=== PATIENT | male | born 2000 | race Two or more races ===

== ENCOUNTER 2024-09-10 14:26 | Inpatient (IN) | payer OTHER, SELFPAY ==
[2024-09-10] VITALS (16 sets, daily range): BP systolic 99–159; BP diastolic 69–92; BMI 27.3
[2024-09-10] MEDS: TORADOL 30 MG IV (06:00)
[2024-09-10] MEDS: ZOFRAN 4 MG IV ×3 (06:00→16:53)
[2024-09-10 06:19] LABS: Hematocrit 48.5 % (39.0-52.0); Mean Corp Hgb Conc. 35.1 g/dL (33.0-37.0); Mean Corpuscular Hgb 29.3 pg (27.0-31.0); Mean Corpuscular Volume 83.6 fL (80.0-94.0); Mean Platelet Volume 10.2 fL (7.4-10.4); Platelet Count 360 10^3/uL (130-400); Red Cell Dist. Width 12.8 % (11.5-14.5)
[2024-09-10 06:27] LABS: Lactic Acid 2.7 mmol/L (0.7-2.0)
[2024-09-10 06:35] LABS: ALT (SGPT) 39 U/L (0-50); AST (SGOT) 27 U/L (17-59); Albumin 5.2 g/dl (3.5-5.0); Alkaline Phosphatase 79 U/L (38-126); Blood Urea Nitrogen 17 mg/dl (9-20); Calcium 10.1 mg/dl (8.4-10.2); Carbon Dioxide 19 mmol/L (22-30); Chloride 112 mmol/L (98-107); Glucose 191 mg/dl (70-99); Potassium 4.7 mmol/L (3.5-5.1); Sodium 145 mmol/L (135-145); Total Bilirubin 0.9 mg/dl (0.2-1.3); eGFR > 60.00
[2024-09-10] MEDS: NSS 1000 IV ×2 (06:37→14:19)
[2024-09-10 06:49] LABS: Lipase 76 U/L (23-300)
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
[2024-09-10] MEDS: OMNIPAQUE 50 ML PO (07:21)
[2024-09-10 08:08] LABS: % Basophils 0.3 % (0-2); % Immature Granulocytes 0.4 % (0-0.5); % Monocytes 3.4 % (1.7-9.3); % Neutrophils 90.9 % (42.2-75.2); Absolute Basophils 0.1 10^3/uL (0-0.2); Absolute Immature Granulocytes 0.1 10^3/uL (0-0.05); Absolute Monocytes 0.7 10^3/uL (0.1-0.6); Nucleated Red Blood Cells % 0 % (-)
[2024-09-10] MEDS: MORPHINE SULFATE 4 MG IV (10:11)
[2024-09-10 10:26] LABS: Lactic Acid 2.2 mmol/L (0.7-2.0)
[2024-09-10] MEDS: TORADOL 15 MG IV ×2 (11:48→22:59)
--- NOTE | 2024-09-10 14:13 | EDRN ---
Bladder scan showed 71 mls in bladder scan. patient has continuous stress incontinence at baseline. GI [employer]ER [employer] at bedside. 14F catheters placed in RLQ stoma and rectum to decompress GI tract and help relieve pain. Patient tolerated. Skin care applied.
New sheets given. IVF 1LNSS started per GI [employer] verbal order. Awaiting surgery consult.
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
--- NOTE | 2024-09-10 14:31 | EDRN ---
colorectal surgery at bedside
[2024-09-10] MEDS: DILAUDID 0.5 MG IV ×4 (14:35→22:28)
[2024-09-10] MEDS: ZOSYN 50 IV ×2 (15:06→22:28)
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
--- NOTE | 2024-09-10 15:24 | EDRN ---
RN unsuccessful with placing mendez catheter with 12 fr mendez. RN met with a lot of resistance upon insertion and patient could not tolerate pain. MD Wilder [facility] medicine aware.
--- NOTE | 2024-09-10 15:26 | EDRN ---
1500- colorectal surgery removed rectal tubing
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
[2024-09-10] MEDS: FLEET PHOSPHATE ENEMA-ADULT 135 ML RECTAL (16:53)
[2024-09-10] MEDS: NSS 500 IV (17:22)
--- NOTE | 2024-09-10 18:40 | PTCARENOTE ---
Pt received as admit from ED. Primary language is Cymraes/Greek. AAOx3. NSR on tele. SpO2 93% on room air. VSS. Pt with appendicostomy in the RLQ of abdomen with red rubber Mujica placed by GI connected to drainage bag. Dressing saturated d/t
leaking around catheter. Dressing changed. Trach gauze, abd and Medipore applied. RUQ and RLQ tender. LLQ with hypoactive bowel sounds. Pt received fleet enema x1 via rectum without much relief. Very small BM noted after administering. R hip/thigh
and sacrum with old scarring from prior reconstructive surgical procedures. Skin intact otherwise. IVF infusing through R hand PIV. Pt abdominal pain managed with PRN IV Dilaudid (see MAR). Assessment documented. Pt in bed call south in reach.
[2024-09-10] MEDS: NSS IV (19:00)
[2024-09-10] MEDS: BENTYL 10 MG PO (22:59)
--- NOTE | 2024-09-10 23:26 | PTCARENOTE ---
Patient experiencing 10/10 abdominal pain with severe cramping. Spoke to patient via pest locator. Pt initially refusing enema through appendicostomy due to the severe pain he experienced when attempted previously. ALEXIS Ann made aware and ordered
pre medication for pain prior to administering enema. See MAR. Pt is receptive. Dilaudid PRN changed to Q2H due to pain severity and frequency. ALEXIS Ann gave the OK to administer Bentyl for spasms with small sip of water. Pt denies any nausea or
vomiting. Pt AAOx3 primary language is Ukranian. NSR on the monitor. Pt on room air. SpO2 94%. RLQ appendicostomy site dressing intact with small amount of drainage. IVF cont. IV abx administered. Assessment and vitals as charted see worklist. Call
south within reach.
[2024-09-11] VITALS (11 sets, daily range): BP systolic 111–131; BP diastolic 64–80; BMI 26.9
[2024-09-11] MEDS: FLEET PHOSPHATE ENEMA-ADULT 135 ML RECTAL ×2 (00:05→07:51)
[2024-09-11] MEDS: GLYCERIN SUPPOSITORY ADULT 1 SUPP RECTAL (00:05)
[2024-09-11] MEDS: NSS IV ×2 (00:27→14:57)
[2024-09-11] MEDS: PEPCID 20 MG PO (01:02)
--- NOTE | 2024-09-11 01:08 | PTCARENOTE ---
Administered enema through appendicostomy as well as suppository rectally. There was some drainage around the stoma noted as well as after administration.
[2024-09-11] MEDS: NSS 1000 IV ×2 (02:03→09:36)
--- NOTE | 2024-09-11 02:48 | PTCARENOTE ---
Patient 85% SpO2 on room air while sleeping. Placed pt on 2L NC.
[2024-09-11] MEDS: ZOFRAN 4 MG IV (03:33)
[2024-09-11] MEDS: ZOSYN 50 IV ×4 (03:33→22:04)
[2024-09-11 04:32] LABS: % Basophils 0.3 % (0-2); % Eosinophils 0.3 % (0-6); % Immature Granulocytes 0.3 % (0-0.5); % Lymphocytes 7.3 % (20.5-51.1); % Monocytes 9.8 % (1.7-9.3); Absolute Lymphocytes 0.9 10^3/uL (1.2-3.4); Absolute Monocytes 1.2 10^3/uL (0.1-0.6); Absolute Neutrophils 9.8 10^3/uL (1.4-6.5); Hematocrit 45.1 % (39.0-52.0); Hemoglobin 14.8 g/dL (13.0-18.0); Mean Corp Hgb Conc. 32.8 g/dL (33.0-37.0); Mean Corpuscular Hgb 28.7 pg (27.0-31.0); Mean Corpuscular Volume 87.6 fL (80.0-94.0); Mean Platelet Volume 10.1 fL (7.4-10.4); Nucleated Red Blood Cells % 0 % (-); Platelet Count 277 10^3/uL (130-400); Red Blood Cell Count 5.15 10^6/uL (4.70-6.10); Red Cell Dist. Width 13.3 % (11.5-14.5)
--- NOTE | 2024-09-11 04:32 | PTCARENOTE ---
Patient had an episode of vomiting, brown emesis. IV Zofran administered. ALEXIS Ann made aware, new orders for IV Protonix see MAR.
[2024-09-11] MEDS: PROTONIX IV 40 MG IV (04:41)
[2024-09-11] MEDS: NSS (PRESERVATIVE FREE) 10 ML IV (04:41)
[2024-09-11 04:50] LABS: ALT (SGPT) 35 U/L (0-50); AST (SGOT) 20 U/L (17-59); Albumin 3.9 g/dl (3.5-5.0); Alkaline Phosphatase 60 U/L (38-126); Blood Urea Nitrogen 15 mg/dl (9-20); Calcium 8.7 mg/dl (8.4-10.2); Carbon Dioxide 23 mmol/L (22-30); Chloride 116 mmol/L (98-107); Estimated Creatinine Clearance 112 ml/min; Glucose 124 mg/dl (70-99); Potassium 3.9 mmol/L (3.5-5.1); Sodium 148 mmol/L (135-145); Total Bilirubin 1.4 mg/dl (0.2-1.3); Total Protein 6.3 g/dl (6.3-8.2); eGFR > 60.00
--- NOTE | 2024-09-11 04:52 | W.PN.UPDATE ---
Update Note
Progress Note Update
Patient c/o 01/01 abdominal pain. Dilaudid IV given as well as Toradol IV x1. Enema given yielded only small amount of liquid bm. One episode of vomiting noted. Pepcid/Protonix given for c/o reflux. Bladder scanned for 70 cc urine. May need urology
consult with calculi noted in bladder.
--- NOTE | 2024-09-11 06:32 | W.PN.HOSP.TC ---
Today's Communication/Plan
-
Gastrografin enema
Assessment / Plan
Assessment / Plan
IMPRESSION:
24-year-old male presenting with worsening constipation. Patient is septic at presentation in the ER.
PLAN:
#Sepsis
#Severe constipation
#Abdominal pain
Elevated WBC count 20, tachycardia�102, tachypnea�23 at presentation
SIRS positive
CT abdomen pelvis�severely dilated stool/fluid-filled colon/constipation/colonic ileus, no evidence of obstruction, 3.8 cm large bladder calculus with cystitis.
X-ray abdomen showed no evidence of free air under the diaphragm
Patient also has a history of stress urinary incontinence
Differentials�colitis due to severe colonic stool burden/translocation causing bacteremia or infection of the stoma site or UTI
MACE procedure (appendicostomy for antegrade enema)
No evidence of peritonitis
Continue IV fluids
NPO
Continue IV Zosyn
Blood culture X2-pending
U/A with urine culture�pending
Pain control with Dilaudid, Toradol as needed
Case discussed with [facility] pediatric surgeon
GI consulted
Colorectal consulted�no acute surgical intervention at this time
Fleet enemas via Mace and transanal with glycerin suppositories did not help much
Gastrografin enema today
#Acute drop in hemoglobin
17 >>14.8
No hematemesis, blood in the stool/from ostomy site, hematuria reported
Will check CBC and monitor for now
#Hypernatremia
145 >>148
Patient is dehydrated/vomiting episodes
Will monitor for now
#Lactic acidosis
Resolved
Lactate 2.7 >>2.2 >>0.9
#Bladder calculus
Patient has stress urinary incontinence
U/A with culture
Tried to place Mujica, but could not
Overnight bladder scan for 70 cc urine, no retention
Urology consulted
DVT prophylaxis-SCDs
Diet NPO
Full code
Anticipated Discharge: > 48 hours
Subjective/Interval History
-
Date of Service: September 11, 2024
Patient reports his abdominal pain has improved, want to have some water.
Overnight�glycerin suppositories were given, Fleet enema from the appendicostomy site.Patient had an episode of vomiting and passed small soft stool overnight.
Objective Data
-
Labs:
Laboratory Results
09/11/24
04:07
WBC 12.0 H
Hgb 14.8
Hct 45.1
Plt Count 277 D
Sodium 148 H
Potassium 3.9
Chloride 116 H
Carbon Dioxide 23
BUN 15
Creatinine 0.9
Glucose 124 H
Calcium 8.7
Total Bilirubin 1.4 H
AST 20
ALT 35
Alkaline Phosphatase 60
Vital Signs:
Vital Signs
Temp Pulse Resp BP Pulse Ox
98.0 F 72 18 122/70 93
09/11/24 03:20 09/11/24 04:00 09/11/24 04:00 09/11/24 04:00 09/11/24 05:54
I&O
09/09/24 09/10/24 09/11/24
06:59 06:59 06:59
Intake Total 1600 / 1600
Output Total 200 / 200
Balance 1400 / 1400
Review of Systems
-
All other systems: Reviewed and negative
Physical Exam
-
General: Well Developed and Well Nourished
HEENT: Normocephalic and Atraumatic
Respiratory: Clear to Auscultation
Cardiac: Regular Rhythm and S1/S2
GI: Tender (No gaurding), Distended, Ostomy (Appendicostomy site connected to bag with 100 cc output of feculent material.) and Other (Bowel sounds positive)
Skin: Warm and Dry
Neuro: Awake, Alert, Oriented and AO x 3
Psych: Calm
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
[2024-09-11 08:05] LABS: Lactic Acid 0.9 mmol/L (0.7-2.0)
[2024-09-11] MEDS: DILAUDID 0.5 MG IV (08:09)
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
--- NOTE | 2024-09-11 08:36 | PTCARENOTE ---
MACE dressing changed due to copious drainage; Noted drainage bag connected to tube in MACE drained 75ml of liquid brown stool; Fleet enema administered through MACE tube and clamped. Pt reported severe pain and began dry heaving shortly after -
Dilaudid administered for pain. Will continue to monitor and assess.
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
--- NOTE | 2024-09-11 14:47 | PTCARENOTE ---
Pt returned from OP Radiology following gastro-gaffin enema. Turned Pt to change pads and Pt had large mostly liquid BM with some small hard stools/pieces noted. Turned Pt back and forth a couple times with each time producing mod-large liquid
BM's. Followed up after 45min with Pt and turned back and forth to produce 2 more mod-large mostly liquid BM's. Pt reports feeling better, denied pain or nausea at the time. Will continue to monitor and assess.
--- NOTE | 2024-09-11 15:48 | CM ---
Met with patient at bedside; initial assessment completed with the assistance of Online Cnc Mechanic
Pharmacy verified: [facility] @ [address] [place] [address]
Patient lives with mother and brother; split level home 5 steps to enter; 6 steps between levels; railings on stairs; powder room lower level; full bath with shower stall upper level
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
[facility]
DME: MACE apparatus ([place] Antegrade Continence Enema) to manage Bowel issues
Hospital stay in 2021 @ [facility]; no SNF or Home Health services
Discharge plan to be determined; case management will monitor hospital course and support discharge needs/services accordingly when determined
[2024-09-11] MEDS: LR 1000 IV (16:43)
[2024-09-12] VITALS (7 sets, daily range): BP systolic 107–123; BP diastolic 65–82; BMI 26.9
--- NOTE | 2024-09-12 00:38 | PTCARENOTE ---
Patient appears much more comfortable compared to the night prior following the Gastrografin enema. Pt had one small liquid BM tonight. Pt denies any cramping or discomfort at this time. Pt continues to request water, utilized mica parts sprayer to explain
that he can have ice chips sparingly but has to remain NPO throughout the night until cleared. IVF cont. IV abx cont. Call south is within reach.
[2024-09-12] MEDS: LR 1000 IV ×2 (03:01→16:04)
[2024-09-12] MEDS: ZOSYN 50 IV ×4 (03:01→23:47)
[2024-09-12 04:36] LABS: % Basophils 0.4 % (0-2); % Eosinophils 1.5 % (0-6); % Immature Granulocytes 0.3 % (0-0.5); % Lymphocytes 17.3 % (20.5-51.1); % Monocytes 8.4 % (1.7-9.3); % Neutrophils 72.1 % (42.2-75.2); Absolute Eosinophils 0.1 10^3/uL (0-0.7); Absolute Lymphocytes 1.6 10^3/uL (1.2-3.4); Absolute Monocytes 0.8 10^3/uL (0.1-0.6); Absolute Neutrophils 6.8 10^3/uL (1.4-6.5); Hematocrit 41.4 % (39.0-52.0); Mean Corp Hgb Conc. 33.8 g/dL (33.0-37.0); Mean Corpuscular Hgb 28.5 pg (27.0-31.0); Mean Corpuscular Volume 84.3 fL (80.0-94.0); Mean Platelet Volume 10.2 fL (7.4-10.4); Nucleated Red Blood Cells % 0 % (-); Platelet Count 250 10^3/uL (130-400); Red Blood Cell Count 4.91 10^6/uL (4.70-6.10); Red Cell Dist. Width 12.9 % (11.5-14.5); White Blood Cell Count 9.5 10^3/uL (4.8-10.8)
[2024-09-12 05:01] LABS: ALT (SGPT) 24 U/L (0-50); AST (SGOT) 17 U/L (17-59); Albumin 3.5 g/dl (3.5-5.0); Alkaline Phosphatase 56 U/L (38-126); Blood Urea Nitrogen 12 mg/dl (9-20); Calcium 8.6 mg/dl (8.4-10.2); Carbon Dioxide 25 mmol/L (22-30); Chloride 107 mmol/L (98-107); Estimated Creatinine Clearance 112 ml/min; Glucose 79 mg/dl (70-99); Potassium 3.2 mmol/L (3.5-5.1); Sodium 140 mmol/L (135-145); Total Bilirubin 1.9 mg/dl (0.2-1.3); Total Protein 5.6 g/dl (6.3-8.2); eGFR > 60.00
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
[2024-09-12] MEDS: KCL 270 MEQ IV (08:51)
[2024-09-12] MEDS: FLEET PHOSPHATE ENEMA-ADULT 135 ML RECTAL (08:51)
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
--- NOTE | 2024-09-12 12:47 | W.PN.URO.CBU ---
Today's Communication / Plan
-
no gu intervention
Assessment / Plan
-
dwyer s bladder stone which is mnoit soursce of admission but needs evall and tx will have pt seeprimary urologistor care givers other rashid follow up with dr reid for cyso and lasr tx
Diagnosis
-
Date of Service: September 12, 2024
-
Patient Diagnosis:recent sepsis incidental bladder stone noted
Post Op Day:
Subjective
-
nurse notes feeling better
Objective
-
Vital Signs
Temp Pulse Resp BP Pulse Ox
97.7 F 67 17 123/71 93
09/12/24 07:35 09/12/24 08:00 09/12/24 08:00 09/12/24 08:00 09/12/24 00:18
Intake and Output
09/11/24 09/12/24 09/13/24
06:59 06:59 06:59
Intake Total 1600 / 1600 900 / 900 500 / 500
Output Total 200 / 200
Balance 1400 / 1400 900 / 900 500 / 500
Intake:
IV fluids (Total) 1500 / 1500 800 / 800 500 / 500
IV piggybacks 100 / 100 100 / 100
Output:
Emesis 200 / 200
Other:
Number of approximated SMALL 1
amounts of urine
Number of approximated LARGE 1
amounts of urine
How many times incontinent 2
MODERATE amount urine
How many times incontinent 1 1
SATURATED amount urine
Laboratory Results
09/12/24 04:10
09/12/24 04:10
Review of Systems
-
Abdomen/GI: No Symptoms
Physical Exam
-
General - well developed, well nourished, no acute distress
Chest - clear bilaterally
Abdomen - soft, non-tender, positive bowel sounds, no CVAT, no incisional pain or distention
Genitalia - normal
Rectal - normal
Skin - warm & dry with no rash
Neuro - AOx3, no motor deficits
Extremities - no clubbing, no cyanosis, no edema
Incision - clean, dry
Dressing - clean, dry, intact
Care Review
Data Reviewed
Discussed with: Nursing
CT Scan: Image Pers Reviewed
[2024-09-12] MEDS: KCL ELIXIR 40 MEQ PO (14:54)
[2024-09-13] MEDS: ZOSYN 50 IV ×2 (04:06→08:51)
[2024-09-13] MEDS: LR 1000 IV (04:47)
[2024-09-13 07:00] LABS: Hematocrit 44.1 % (39.0-52.0); Hemoglobin 15.4 g/dL (13.0-18.0); Mean Corp Hgb Conc. 34.9 g/dL (33.0-37.0); Mean Corpuscular Hgb 28.9 pg (27.0-31.0); Mean Corpuscular Volume 82.7 fL (80.0-94.0); Mean Platelet Volume 10.2 fL (7.4-10.4); Platelet Count 265 10^3/uL (130-400); Red Blood Cell Count 5.33 10^6/uL (4.70-6.10); Red Cell Dist. Width 12.6 % (11.5-14.5); White Blood Cell Count 6.7 10^3/uL (4.8-10.8)
[2024-09-13 07:37] LABS: Blood Urea Nitrogen 7 mg/dl (9-20); Calcium 8.9 mg/dl (8.4-10.2); Carbon Dioxide 28 mmol/L (22-30); Chloride 105 mmol/L (98-107); Estimated Creatinine Clearance 101 ml/min; Glucose 80 mg/dl (70-99); Magnesium 1.8 mg/dl (1.6-2.3); Potassium 3.5 mmol/L (3.5-5.1); Sodium 139 mmol/L (135-145); eGFR > 60.00
[2024-09-13 07:48] VITALS: BP 112/71
[2024-09-13] MEDS: FLEET PHOSPHATE ENEMA-ADULT RECTAL (09:20)
[2024-09-13] MEDS: LR IV (09:20)
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
--- NOTE | 2024-09-13 11:43 | W.PN.URO.CBU ---
Today's Communication / Plan
-
home with outpatient follow up
Assessment / Plan
-
dwyer s bladder stone which is mnoit soursce of admission but needs evall and tx will have pt seeprimary urologistor care givers other rashid follow up with dr erid for cyso and lasr tx
Diagnosis
-
Date of Service: September 13, 2024
-
Patient Diagnosis:
Post Op Day:
Patient Diagnosis:recent sepsis incidental bladder stone noted
Post Op Day:
Subjective
-
nurses note stable
Objective
-
Vital Signs
Temp Pulse Resp BP Pulse Ox
97.8 F 54 21 112/71 95
09/13/24 07:48 09/13/24 07:48 09/13/24 07:48 09/13/24 07:48 09/13/24 07:48
Intake and Output
09/12/24 09/13/24 09/14/24
06:59 06:59 06:59
Intake Total 900 / 900 500 / 500
Balance 900 / 900 500 / 500
Intake:
IV fluids (Total) 800 / 800 500 / 500
IV piggybacks 100 / 100
Other:
Number of approximated MODERATE 2
amounts of urine
How many times incontinent 2
MODERATE amount urine
How many times incontinent 1
SATURATED amount urine
Number of unmeasured liquid
stools
Rectum 3
Laboratory Results
09/13/24 06:32
09/13/24 06:32
Review of Systems
-
: No Symptoms
Physical Exam
-
General - well developed, well nourished, no acute distress
Chest - clear bilaterally
Abdomen - soft, non-tender, positive bowel sounds, no CVAT, no incisional pain or distention
Genitalia - normal
Rectal - normal
Skin - warm & dry with no rash
Neuro - AOx3, no motor deficits
Extremities - no clubbing, no cyanosis, no edema
Incision - clean, dry
Dressing - clean, dry, intact
Care Review
Data Reviewed
Discussed with: Hospitalist
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
[2024-09-13 13:18] VITALS: BP 118/74
== END 2024-09-13 13:27 | disposition home or self-care (01) | DRG 872 ==
LOC: 3 WEST ACU 14:26
PROVIDERS: Emergency Medicine; Student in an Organized Health Care Education/Training Program; ADMITTING PHYSICIAN Internal Medicine; CONSULT PHYSICIAN Internal Medicine Gastroenterology; CONSULT PHYSICIAN Specialist; CONSULT PHYSICIAN Surgery; EMERGENCY PHYSICIAN Emergency Medicine; FAMILY PHYSICIAN Family Medicine
DX: A41.9 Sepsis, unspecified organism (principal); E87.20 Acidosis, unspecified; E87.1 Hypo-osmolality and hyponatremia; R71.0 Precipitous drop in hematocrit; K59.09 Other constipation; N39.3 Stress incontinence (female) (male); N21.0 Calculus in bladder; F17.210 Nicotine dependence, cigarettes, uncomplicated; N35.014 Post-traumatic urethral stricture, male, unspecified; K59.89 Other specified functional intestinal disorders; E87.6 Hypokalemia; R16.1 Splenomegaly, not elsewhere classified; Z79.899 Other long term (current) drug therapy
CPT/HCPCS: 51702; 51798; 74018; 74177; 74270; 80048; 80053; 83605; 83690; 83735; 85025; 85027; 87040; 96361; 96365; 99285; 99406; Q9967